=== PATIENT | female | born 1990 | race Caucasian/White ===

== ENCOUNTER 2017-03-25 22:54 | Emergency (ER) | payer OTHER ==
[2017-03-25] MEDS ORDERED: AMOXICILLIN 250 MG/5 ML 80 ML BOTTLE PO ONE (23:14)
[2017-03-25] MEDS ORDERED: ONDANSETRON ODT 4 MG TAB PO STA (23:14)
[2017-03-25] MEDS ORDERED: MORPHINE ORAL SOLN 10 MG/5 ML CUP PO STA (23:14)
[2017-03-25] MEDS ORDERED: LIDOCAINE VISCOUS 2% 15 ML CUP MUCOUS MEM ONE (23:15)
--- NOTE | 2017-03-25 23:16 | ED ---
General Adult HPI - General Chief complaint: Dental/Oral Stated complaint: dental pain Time Seen by Provider: 03/25/17 23:07 Source: patient, RN notes reviewed, old records reviewed Mode of arrival: ambulatory Limitations: no limitations - History of Present Illness Initial comments: This is a 19-year-old female to the ER for evaluation of mouth pain. Patient has history of severe dental caries. Multiple episodes of infection and dental abscess. She states she's had 2 days of worsening pain, states she is getting mildly increased malodorous breath. Patient states pain when she presses on her back left teeth. Denies any fevers. Able swallow without difficulty. - Related Data Previous Rx's Medication Instructions Recorded Acetaminophen-Codeine 300-30mg 1 tab PO Q6H PRN #30 tablet 03/25/17 [Tylenol #3] Penicillin V Potassium [Pen Vee K] 500 mg PO QID #40 tab 03/25/17 Allergies Allergy/AdvReac Type Severity Reaction Status Date / Time Sulfa (Sulfonamide Allergy Anaphylaxis Verified 03/26/17 20:56 Antibiotics) sulfamethoxazole Allergy Anaphylaxis Verified 03/26/17 20:56 [From Bactrim] trimethoprim [From Bactrim] Allergy Anaphylaxis Verified 03/26/17 20:56 Review of Systems ROS Statement: Those systems with pertinent positive or pertinent negative responses have been documented in the HPI. ROS Other: All systems not noted in ROS Statement are negative. Past Medical History Past Medical History: No Reported History History of Any Multi-Drug Resistant Organisms: None Reported Past Surgical History: No Surgical Hx Reported Past Psychological History: No Psychological Hx Reported Smoking Status: Current every day smoker Past Alcohol Use History: Rare Past Drug Use History: None Reported General Exam Limitations: no limitations General appearance: alert, in no apparent distress Head exam: Present: atraumatic, normocephalic, normal inspection Eye exam: Present: normal appearance, PERRL, EOMI. Absent: scleral icterus, conjunctival injection, periorbital swelling ENT exam: Present: normal exam, mucous membranes moist Neck exam: Present: normal inspection. Absent: tenderness, meningismus, lymphadenopathy Respiratory exam: Present: normal lung sounds bilaterally. Absent: respiratory distress, wheezes, rales, rhonchi, stridor Cardiovascular Exam: Present: regular rate, normal rhythm, normal heart sounds. Absent: systolic murmur, diastolic murmur, rubs, gallop, clicks GI/Abdominal exam: Present: soft, normal bowel sounds. Absent: distended, tenderness, guarding, rebound, rigid Extremities exam: Present: normal inspection, full ROM, normal capillary refill. Absent: tenderness, pedal edema, joint swelling, calf tenderness Back exam: Present: normal inspection Neurological exam: Present: alert, oriented X3, CN II-XII intact Psychiatric exam: Present: normal affect, normal mood Skin exam: Present: warm, dry, intact, normal color. Absent: rash Course Vital Signs 03/25/17 03/26/17 23:00 00:08 Temperature 98.1 F 97.5 F L Pulse Rate 82 80 Respiratory 20 18 Rate Blood Pressure 149/96 123/87 O2 Sat by Pulse 97 96 Oximetry Medical Decision Making - Medical Decision Making 27 female in the ER for evaluation of dental abscess, severe dental pain and dental caries. Patient was placed on pain control and antibiotics. Patient can be discharged home Disposition Clinical Impression: Dental abscess, Toothache, Dental caries Disposition: HOME SELF-CARE Condition: Good Instructions: Dental Abscess (ED), Dental Caries (ED), Toothache (ED) Prescriptions: Acetaminophen-Codeine 300-30mg [Tylenol #3] 1 tab PO Q6H PRN #30 tablet PRN Reason: Pain Penicillin V Potassium [Pen Vee K] 500 mg PO QID #40 tab Referrals: Russell Brennan MD [Primary Care Provider] - 1-2 days
[2017-03-26 00:09] VITALS: BP 123/87; PULSE 80; RESP 18; TEMP 97.5
--- NOTE | 2017-03-28 04:43 | CDI ---
Dear Jose Manuel Randall DO: Please do addendum History of Present Illness and Physical Examination. Thank you, Binu Clark, Customer Records Division Supervisor. If you have any questions, please contact [employer] at [phone]. [facility]
== END 2017-03-26 00:10 | disposition home or self-care (01) ==
LOC: EC 22:54
DX: K04.7 Periapical abscess without sinus (principal); K02.9 Dental caries, unspecified; F17.200 Nicotine dependence, unspecified, uncomplicated; Z88.1 Allergy status to other antibiotic agents; Z88.2 Allergy status to sulfonamides
CPT/HCPCS: 99283; 99285

== ENCOUNTER 2017-03-26 20:12 | Emergency (ER) | payer OTHER ==
[2017-03-26 20:58] VITALS: BP 129/90; PULSE 116; RESP 18; TEMP 97.6
[2017-03-26] MEDS ORDERED: MORPHINE SULFATE 10 MG/ML SYRINGE IM STA (21:13)
[2017-03-26] MEDS ORDERED: ONDANSETRON 4 MG ODT STARTER PACK 2 TAB BTL PO STA (21:14)
--- NOTE | 2017-03-26 21:15 | ED ---
ENT HPI - General Chief complaint: Dental/Oral Stated complaint: Tooth Ache Time Seen by Provider: 03/26/17 20:51 Source: patient Mode of arrival: ambulatory Limitations: no limitations - History of Present Illness Initial comments: 27-year-old female patient presented to emergency department today for evaluation of dental pain and facial swelling. Patient states that she was seen here yesterday for similar symptoms and given a prescription for antibiotics and pain medication however she was unable to get these filled today. Patient states that she did have increasing pain this evening area she states that her face feels a little bit more swollen. She states she did call the dentist this morning however they told her that she would have to complete her antibiotics prior to having an appointment with them. She states that she has felt hot and chilled however has no documented temperature. She states that she has felt somewhat nauseated today. Patient states that the pain as a burning pain that radiates into her neck and into her face. She states that she is suppose to have all of her teeth removed. Patient denies any recent shortness breath, chest pain, abdominal pain, nausea, vomiting, diarrhea, constipation, back pain, numbness, tingling, headache, visual changes, hematuria , dysuria, urinary frequency, urinary urgency, or any other complaints. - Related Data Previous Rx's Medication Instructions Recorded Acetaminophen-Codeine 300-30mg 1 tab PO Q6H PRN #30 tablet 03/25/17 [Tylenol #3] Penicillin V Potassium [Pen Vee K] 500 mg PO QID #40 tab 03/25/17 Allergies Allergy/AdvReac Type Severity Reaction Status Date / Time Sulfa (Sulfonamide Allergy Anaphylaxis Verified 03/26/17 20:56 Antibiotics) sulfamethoxazole Allergy Anaphylaxis Verified 03/26/17 20:56 [From Bactrim] trimethoprim [From Bactrim] Allergy Anaphylaxis Verified 03/26/17 20:56 Review of Systems ROS Statement: Those systems with pertinent positive or pertinent negative responses have been documented in the HPI. ROS Other: All systems not noted in ROS Statement are negative. Past Medical History Past Medical History: No Reported History History of Any Multi-Drug Resistant Organisms: None Reported Past Surgical History: No Surgical Hx Reported Past Psychological History: Depression Smoking Status: Current every day smoker Past Alcohol Use History: Occasional Past Drug Use History: None Reported General Exam Limitations: no limitations General appearance: alert, in distress (Mild), other (This is a well-developed, well-nourished adult female patient in mild distress related to pain. Vital signs upon presentation a temperature 97.6F, pulse 116, respirations 18, blood pressure 129/90, pulse ox 96% on room air.) Eye exam: Present: normal appearance, PERRL, EOMI. Absent: scleral icterus, conjunctival injection, periorbital swelling ENT exam: Present: normal exam, mucous membranes moist, other (Examination of mouth revealed extensive dental disease. All teeth are black and and flush with the gums. Surrounding gingiva is erythematous and swollen. Patient does have some minor swelling to the left face.) Neck exam: Present: normal inspection. Absent: tenderness, meningismus, lymphadenopathy Respiratory exam: Present: normal lung sounds bilaterally. Absent: respiratory distress, wheezes, rales, rhonchi, stridor Cardiovascular Exam: Present: regular rate, normal rhythm, normal heart sounds. Absent: systolic murmur, diastolic murmur, rubs, gallop, clicks Neurological exam: Present: alert, oriented X3, CN II-XII intact Psychiatric exam: Present: normal affect, normal mood Skin exam: Present: warm, dry, intact, normal color. Absent: rash Course Vital Signs 03/26/17 20:56 Temperature 97.6 F Pulse Rate 116 H Respiratory 18 Rate Blood Pressure 129/90 O2 Sat by Pulse 96 Oximetry Medical Decision Making - Medical Decision Making 27-year-old female patient presents to emergency department today for evaluation of dental pain and facial swelling. Physical exam did reveal extensive periodontal disease with gingival erythema and swelling. No area of drainable abscess noted. As patient did have increase in symptoms from yesterday to today I will give her an injection of penicillin here in the department. She was given another dose of pain medication IM as well. Patient did get prescriptions yesterday for antibiotics and pain medication however states she had no transportation to get them filled today. I did discuss with patient the importance of filling these prescriptions and completing the antibiotics in full. I encouraged her to call tomorrow to make a dental appointment for when the antibiotics are completed. She is instructed to follow -up with her primary care physician for recheck in 1-2 days. She is instructed to return here immediately for any new, worsening, or concerning symptoms. She verbalizes understanding and agrees with this plan. Disposition Clinical Impression: Abscess, dental, Pain, dental Disposition: HOME SELF-CARE Condition: Good Instructions: Dental Abscess (ED), Dental Caries (ED), Toothache (ED) Additional Instructions: Take medications as directed. Follow-up with the dentist as soon as possible. Return immediately for any new, worsening, or concerning symptoms. Referrals: Russell Brennan MD [Primary Care Provider] - 1-2 days Time of Disposition: 21:15
[2017-03-26] MEDS ORDERED: PENICILLIN G BENZATHINE 1,200,000 UNIT/2 ML SYRINGE IM STA (21:17)
== END 2017-03-26 21:45 | disposition home or self-care (01) ==
LOC: EC 20:12
DX: K04.7 Periapical abscess without sinus (principal); F17.200 Nicotine dependence, unspecified, uncomplicated; Z88.2 Allergy status to sulfonamides
CPT/HCPCS: 99282 ×2; 96372 ×3; J0561; J2270; S0119

== ENCOUNTER → 2017-05-02 | Outpatient (CLI) | payer OTHER ==
--- NOTE | 2017-05-02 19:46 | MR ---
EXAMINATION TYPE: MR brain wo con DATE OF EXAM: 05/02/2017 COMPARISON: CT brain August 24, 2009. HISTORY: Muscle spasms, R/O MS TECHNIQUE: Multiplanar, multisequence images of the brain and brainstem is performed without IV contrast. Demye linating disease protocol with additional Sagittal Flair sequence performed. FINDINGS: T2 Lesions Present : No Approximate Number of Lesions: N/A Locations Identified : N/A Size of Reference Lesion(s): N/A Enhancing Lesion(s) Present: N/A Change from Prior: N/A Diffusion weighted images demonstrate no evidence of a recent infarct or other diffusion abnormality. There is no worrisome extra-axial fluid collection. The ventricular system and cisternal spaces ar e normal in size and appearance. The brain volume is age appropriate. Midline structures demonstrate normal morphology. The craniocervical junction appears within normal limits. Post contrast images demonstrate no abnormal enhancement. The dural venous sinuses appear pa tent. There is a small mucous retention cyst or polyp in inferior left maxillary sinus. There is mode rate mucosal thickening left ethmoid sinuses with left-sided nasal deviation. The globes are intact b ilaterally. IMPRESSION: No suspicious white matter changes identified to suggest demyelinating disease.
== END | disposition home or self-care (01) ==
LOC: RADMRIMAIN 18:29
PROVIDERS: ATTEND Family Medicine
DX: M62.838 Other muscle spasm (principal)
CPT/HCPCS: 70551

== ENCOUNTER 2017-06-15 22:01 | Emergency (ER) | payer OTHER ==
[2017-06-15] MEDS ORDERED: SODIUM CHLORIDE 0.9% 2,000 ML IV STA (23:52)
[2017-06-15] MEDS ORDERED: ONDANSETRON 4 MG/2 ML VIAL IVP STA (23:52)
[2017-06-16 00:32] LABS: Appearance,Urine Clear (Clear); Bacteria,Urine Rare /hpf; Bilirubin,Urine Negative (Negative); Blood,Urine Moderate (Negative); Color,Urine Colorless; Glucose,Urine (UA) Negative (Negative); Ketones,Urine Negative (Negative); Leukocyte Esterase,Urine Negative (Negative); Nitrite,Urine Negative (Negative); Protein,Urine Negative (Negative); RBC,Urine 1 /hpf (0-5); Specific Gravity,Urine 1.001 (1.001-1.035); Urobilinogen,Urine <2.0 mg/dL (<2.0)
[2017-06-16 00:32] LABS: Basophils # (A) 0.1 k/uL (0-0.2); Basophils % (A) 0 %; Eosinophils # (A) 0.2 k/uL (0-0.7); Eosinophils % (A) 2 %; HCT 44.6 % (34.0-46.0); HGB 14.7 gm/dL (11.4-16.0); Lymphocytes # (A) 3.1 k/uL (1.0-4.8); Lymphocytes % (A) 27 %; MCH 30.3 pg (25.0-35.0); MCHC 32.9 g/dL (31.0-37.0); Mean Platelet Volume 7.1; Monocytes # (A) 0.4 k/uL (0-1.0); Monocytes % (A) 3 %; Neutrophils # (A) 7.3 k/uL (1.3-7.7); Neutrophils % (A) 65 %; Platelet Count 288 k/uL (150-450); RBC 4.85 m/uL (3.80-5.40); RDW 15.4 % (11.5-15.5); WBC 11.2 k/uL (3.8-10.6)
[2017-06-16] MEDS ORDERED: SODIUM CHLORIDE 0.9% 1,000 ML IV SCH (00:45)
[2017-06-16 00:48] LABS: ALT 53 U/L (9-52); AST 30 U/L (14-36); Albumin 4.4 g/dL (3.5-5.0); Alkaline Phosphatase 56 U/L (38-126); Amylase 40 U/L (30-110); Anion Gap 13 mmol/L; Blood Urea Nitrogen 7 mg/dL (7-17); Calcium 9.7 mg/dL (8.4-10.2); Carbon Dioxide 26 mmol/L (22-30); Chloride 88 mmol/L (98-107); Glucose 127 mg/dL (74-99); Lipase 66 U/L (23-300); Potassium 3.5 mmol/L (3.5-5.1); Sodium 127 mmol/L (137-145); Total Bilirubin 0.4 mg/dL (0.2-1.3); Total Protein 7.3 g/dL (6.3-8.2)
--- NOTE | 2017-06-16 01:05 | ED ---
Nausea/Vomiting/Diarrhea HPI - General Chief complaint: Nausea/Vomiting/Diarrhea Stated complaint: Vomiting Time Seen by Provider: 06/15/17 23:33 Source: patient, RN notes reviewed, old records reviewed Mode of arrival: ambulatory Limitations: no limitations - History of Present Illness Initial comments: 27 year old female with history of nausea, vomiting and diarrhea for 3 days. She denies any fever or chills. FAmily has sick contacts with similiar symptoms but not for this long. She has no abdminal pain. Denies chance of . No blood in stool or emesis. MD complaint: nausea, vomiting, diarrhea Onset/Timin -: days(s) Description of Diarrhea: mucous Associated Abdominal Pain: No (Patient denies any abdominal pain) Radiation: none Severity: moderate Associated Symptoms: loss of appetite, malaise, nausea/vomiting - Related Data Home Medications Medication Instructions Recorded Confirmed Ergocalciferol [Vitamin D2] 50,000 unit PO TH 06/15/17 06/15/17 Gabapentin [Neurontin] 100 mg PO TID 06/15/17 06/15/17 Norgestrel-Ethinyl Estradiol 1 tab PO DAILY 06/15/17 06/15/17 [[id number] Tablet] Previous Rx's Medication Instructions Recorded Ondansetron Odt [Zofran Odt] 4 mg PO Q8HR PRN #12 tab 06/16/17 Allergies Allergy/AdvReac Type Severity Reaction Status Date / Time diphenhydramine Allergy Swelling Verified 06/15/17 23:50 [From Benadryl] Sulfa (Sulfonamide Allergy Anaphylaxis Verified 06/15/17 23:50 Antibiotics) sulfamethoxazole Allergy Anaphylaxis Verified 06/15/17 23:50 [From Bactrim] trimethoprim [From Bactrim] Allergy Anaphylaxis Verified 06/15/17 23:50 Review of Systems ROS Statement: Those systems with pertinent positive or pertinent negative responses have been documented in the HPI. ROS Other: All systems not noted in ROS Statement are negative. Past Medical History Past Medical History: No Reported History Additional Past Medical History / Comment(s): MS History of Any Multi-Drug Resistant Organisms: None Reported Past Surgical History: No Surgical Hx Reported Past Psychological History: Depression Smoking Status: Current every day smoker Past Alcohol Use History: Occasional Past Drug Use History: None Reported General Exam - General Exam Comments Initial Comments: This is a 27 year old male, no distress. Limitations: no limitations General appearance: alert, in no apparent distress Head exam: Present: atraumatic, normocephalic, normal inspection Eye exam: Present: normal appearance, PERRL, EOMI. Absent: scleral icterus, conjunctival injection, periorbital swelling ENT exam: Present: normal exam, mucous membranes moist Neck exam: Present: normal inspection. Absent: tenderness, meningismus, lymphadenopathy Respiratory exam: Present: normal lung sounds bilaterally. Absent: respiratory distress, wheezes, rales, rhonchi, stridor Cardiovascular Exam: Present: regular rate, normal rhythm, normal heart sounds. Absent: systolic murmur, diastolic murmur, rubs, gallop, clicks GI/Abdominal exam: Present: soft, normal bowel sounds. Absent: distended, tenderness, guarding, rebound, rigid Back exam: Present: normal inspection Neurological exam: Present: alert, oriented X3, CN II-XII intact Psychiatric exam: Present: normal affect, normal mood Skin exam: Present: warm, dry, intact, normal color. Absent: rash Course Vital Signs 06/15/17 06/15/17 06/16/17 22:17 23:37 00:13 Temperature 98.4 F 97.9 F Pulse Rate 79 61 Respiratory 18 18 16 Rate Blood Pressure 144/90 147/94 O2 Sat by Pulse 98 97 Oximetry 06/16/17 01:18 Temperature 97.0 F L Pulse Rate 69 Respiratory 17 Rate Blood Pressure 156/85 O2 Sat by Pulse 98 Oximetry Medical Decision Making - Medical Decision Making This is a 27 year old with NVD for 3 days. No travel history, no abdominal pain. No recent Abx. She has no toerh symptoms at this time besides fatigue. Patient lab work reviewed, hyponatremia noted. Likely due to dehydration. WBC is normal. Patient reports she feels better after nausea medication nad fluids. Patient will be discharged with zofran and diagnosed with viral gastroenteritis. Return parameters discussed. - Lab Data Result diagrams: 06/16/17 00:05 06/16/17 00:05 Lab Results 06/15/17 06/16/17 06/16/17 Range/Units 23:30 00:05 00:05 WBC 11.2 H (3.8-10.6) k/uL RBC 4.85 (3.80-5.40) m/uL Hgb 14.7 (11.4-16.0) gm/dL Hct 44.6 (34.0-46.0) % MCV 92.0 (80.0-100.0) fL MCH 30.3 (25.0-35.0) pg MCHC 32.9 (31.0-37.0) g/dL RDW 15.4 (11.5-15.5) % Plt Count 288 (150-450) k/uL Neutrophils % 65 % Lymphocytes % 27 % Monocytes % 3 % Eosinophils % 2 % Basophils % 0 % Neutrophils # 7.3 (1.3-7.7) k/uL Lymphocytes # 3.1 (1.0-4.8) k/uL Monocytes # 0.4 (0-1.0) k/uL Eosinophils # 0.2 (0-0.7) k/uL Basophils # 0.1 (0-0.2) k/uL Sodium 127 L (137-145) mmol/L Potassium 3.5 (3.5-5.1) mmol/L Chloride 88 L (98-107) mmol/L Carbon Dioxide 26 (22-30) mmol/L Anion Gap 13 mmol/L BUN 7 (7-17) mg/dL Creatinine 0.60 (0.52-1.04) mg/dL Est GFR (MDRD) Af Amer >60 (>60 ml/min/1.73 sqM) Est GFR (MDRD) Non-Af >60 (>60 ml/min/1.73 sqM) Glucose 127 H (74-99) mg/dL Calcium 9.7 (8.4-10.2) mg/dL Total Bilirubin 0.4 (0.2-1.3) mg/dL AST 30 (14-36) U/L ALT 53 H (9-52) U/L Alkaline Phosphatase 56 (38-126) U/L Total Protein 7.3 (6.3-8.2) g/dL Albumin 4.4 (3.5-5.0) g/dL Amylase 40 (30-110) U/L Lipase 66 (23-300) U/L Urine Color Colorless Urine Appearance Clear (Clear) Urine pH 5.0 (5.0-8.0) Ur Specific [place] 1.001 (1.001-1.035) Urine Protein Negative (Negative) Urine Glucose (UA) Negative (Negative) Urine Ketones Negative (Negative) Urine Blood Moderate H (Negative) Urine Nitrite Negative (Negative) Urine Bilirubin Negative (Negative) Urine Urobilinogen <2.0 (<2.0) mg/dL Ur Leukocyte Esterase Negative (Negative) Urine RBC 1 (0-5) /hpf Urine Bacteria Rare H (None) /hpf Disposition Clinical Impression: Gastroenteritis Disposition: HOME SELF-CARE Condition: Good Instructions: Dehydration (ED), Gastroenteritis (ED) Additional Instructions: Patient advised to increase fluid intake. Use nausea medication. Follow up with PCP if symptoms continue to persist. Prescriptions: Ondansetron Odt [Zofran Odt] 4 mg PO Q8HR PRN #12 tab PRN Reason: Nausea Referrals: Russell Brennan MD [Primary Care Provider] - 1-2 days Time of Disposition: 01:02
[2017-06-16 01:21] VITALS: BP 156/85; PULSE 69; RESP 17; TEMP 97
== END 2017-06-16 01:25 | disposition home or self-care (01) ==
LOC: EC 22:01
DX: K52.9 Noninfective gastroenteritis and colitis, unspecified (principal); F17.200 Nicotine dependence, unspecified, uncomplicated; Z79.3 Long term (current) use of hormonal contraceptives; Z79.899 Other long term (current) drug therapy; Z88.8 Allergy status to other drugs, medicaments and biological substances; Z88.2 Allergy status to sulfonamides
CPT/HCPCS: 36415; 80053; 82150; 83690; 85025; 81001; 99284; 96374; 96361; J2405

== ENCOUNTER 2017-10-10 06:06 | Emergency (ER) | payer OTHER ==
[2017-10-10] MEDS ORDERED: HYDROcodone/APAP 10-325MG 1 EACH TAB PO ONE (07:33)
[2017-10-10] MEDS ORDERED: KETOROLAC 30 MG/ML 1 ML VIAL IM STA (07:33)
--- NOTE | 2017-10-10 07:43 | ED ---
Extremity Problem HPI - General Chief complaint: Extremity Problem,Nontraumatic Stated complaint: KNEE PAIN Time Seen by Provider: 10/10/17 07:24 Source: patient Mode of arrival: ambulatory Limitations: no limitations - History of Present Illness Initial comments: Patient complains of pain in the right knee. Sometimes she has seizures at night. She thinks she might have injured it. She denies any numbness or tingling in the feet. She has no focal weakness. She denies any head injury, neck injury. She took no medication for the pain. She has no history of drug abuse. She denies belly or back pain. She has no dysuria vaginal bleeding or discharge. She has no focal weakness. She has no numbness or tingling in the toes. She has no claudication. - Related Data Home Medications Medication Instructions Recorded Confirmed Ergocalciferol [Vitamin D2] 50,000 unit PO TH 06/15/17 06/15/17 Gabapentin [Neurontin] 100 mg PO TID 06/15/17 06/15/17 Norgestrel-Ethinyl Estradiol 1 tab PO DAILY 06/15/17 06/15/17 [[id number] Tablet] Previous Rx's Medication Instructions Recorded Ondansetron Odt [Zofran Odt] 4 mg PO Q8HR PRN #12 tab 06/16/17 Allergies Allergy/AdvReac Type Severity Reaction Status Date / Time diphenhydramine Allergy Swelling Verified 06/15/17 23:50 [From Benadryl] Sulfa (Sulfonamide Allergy Anaphylaxis Verified 06/15/17 23:50 Antibiotics) sulfamethoxazole Allergy Anaphylaxis Verified 06/15/17 23:50 [From Bactrim] trimethoprim [From Bactrim] Allergy Anaphylaxis Verified 06/15/17 23:50 Review of Systems ROS Statement: Those systems with pertinent positive or pertinent negative responses have been documented in the HPI. ROS Other: All systems not noted in ROS Statement are negative. Past Medical History Past Medical History: Seizure Disorder Additional Past Medical History / Comment(s): recently diagnosed with MS, pt reports "night time seizures" no medication History of Any Multi-Drug Resistant Organisms: None Reported Past Surgical History: No Surgical Hx Reported Past Psychological History: Depression Smoking Status: Current every day smoker Past Alcohol Use History: Occasional Past Drug Use History: None Reported General Exam Limitations: no limitations Head exam: Present: atraumatic, normocephalic, normal inspection Eye exam: Present: normal appearance, PERRL, EOMI. Absent: scleral icterus, conjunctival injection, periorbital swelling ENT exam: Present: normal exam Neck exam: Present: normal inspection Respiratory exam: Absent: respiratory distress Extremities exam: Present: normal inspection, full ROM, normal capillary refill. Absent: tenderness, pedal edema, joint swelling, calf tenderness Back exam: Present: normal inspection Neurological exam: Present: alert, oriented X3, CN II-XII intact Psychiatric exam: Present: normal affect, normal mood Skin exam: Present: warm, dry, intact, normal color. Absent: rash Course Vital Signs 10/10/17 06:09 Temperature 97.6 F Pulse Rate 105 H Respiratory 18 Rate Blood Pressure 135/93 O2 Sat by Pulse 94 L Oximetry Medical Decision Making - Medical Decision Making Patient complains of a knee injury. X-rays are negative. She has neurovascularly intact. She has no evidence of DVT or infectious process. There is no evidence of any acute emergency condition. She is stable for discharge and outpatient follow-up. Disposition Clinical Impression: Knee pain Disposition: HOME SELF-CARE Condition: Good Instructions: Knee Pain (ED) Is patient prescribed a controlled substance at d/c from ED?: No Referrals: Russell Brennan MD [Primary Care Provider] - 1-2 days Jose Edwards MD [STAFF PHYSICIAN] - 1-2 days Time of Disposition: 07:58
--- NOTE | 2017-10-10 07:49 | XR ---
RIGHT KNEE, 3 VIEWS INDICATION: Right knee pain COMPARISON: None. FINDINGS: AP, oblique, and lateral views of the right knee are obtained. There is no evidence of acute fracture or malalignment. The joint spaces are maintained. There is no significant joint effusion. Soft tissues are radiographically unremarkable. IMPRESSION: No acute fracture or subluxation identified.
[2017-10-10 08:15] VITALS: BP 128/72; PULSE 94; RESP 16; TEMP 98.2
== END 2017-10-10 08:15 | disposition home or self-care (01) ==
LOC: EC 06:06
DX: M25.561 Pain in right knee (principal); G40.909 Epilepsy, unspecified, not intractable, without status epilepticus; F32.9 Major depressive disorder, single episode, unspecified; F17.200 Nicotine dependence, unspecified, uncomplicated; Z88.1 Allergy status to other antibiotic agents; Z88.2 Allergy status to sulfonamides; Z88.8 Allergy status to other drugs, medicaments and biological substances; Z79.3 Long term (current) use of hormonal contraceptives; Z79.899 Other long term (current) drug therapy
CPT/HCPCS: 99283; 73562; J1885

== ENCOUNTER 2018-04-12 23:36 | Emergency (ER) | payer OTHER ==
[2018-04-13] MEDS ORDERED: MORPHINE SULFATE 4 MG/ML SYRINGE IM STA (01:21)
[2018-04-13] MEDS ORDERED: PENICILLIN G BENZATHINE 1,200,000 UNIT/2 ML SYRINGE IM STA (01:21)
[2018-04-13] MEDS ORDERED: KETOROLAC 30 MG/ML 1 ML VIAL IM STA (01:21)
[2018-04-13] MEDS ORDERED: ONDANSETRON ODT 4 MG TAB PO STA (01:22)
[2018-04-13] MEDS ORDERED: ACET/COD 300 MG/30 MG STARTER PACK 6 TAB BTL PO STA (01:23)
--- NOTE | 2018-04-13 01:23 | ED ---
ENT HPI - General Chief complaint: Dental/Oral Stated complaint: Dental Pain Time Seen by Provider: 04/13/18 00:40 Source: patient Mode of arrival: ambulatory Limitations: no limitations - History of Present Illness Initial comments: 28-year-old female patient presents to the emergency department today with complaints of left-sided facial pain and swelling. Patient states that she has multiple broken and "infected" teeth. Patient states that she does have a dentist appointment next week for multiple tooth extraction however started having increased pain and swelling 2 days ago. Patient states that she has been nauseated throughout the day and has vomited. Patient states she is mostly is gagging because the area around the teeth is draining purulent fluid. Patient denies any fevers or chills with this. Denies any difficulty swallowing or trismus. Patient denies any recent rash, shortness breath, chest pain, back pain, numbness, tingling, dizziness, weakness, hematuria, dysuria, urinary urgency, urinary frequency, headache, visual changes, or any other complaints. - Related Data Home Medications Medication Instructions Recorded Confirmed Norgestrel-Ethinyl Estradiol 1 tab PO DAILY 06/15/17 10/10/17 [[id number] Tablet] Previous Rx's Medication Instructions Recorded Ibuprofen [Motrin] 600 mg PO Q8HR PRN #30 tab 04/13/18 Penicillin V Potassium [Pen Vee K] 500 mg PO Q6H #40 tablet 04/13/18 Allergies Allergy/AdvReac Type Severity Reaction Status Date / Time diphenhydramine Allergy Swelling Verified 04/12/18 23:47 [From Benadryl] Sulfa (Sulfonamide Allergy Anaphylaxis Verified 04/12/18 23:47 Antibiotics) sulfamethoxazole Allergy Anaphylaxis Verified 04/12/18 23:47 [From Bactrim] trimethoprim [From Bactrim] Allergy Anaphylaxis Verified 04/12/18 23:47 Review of Systems ROS Statement: Those systems with pertinent positive or pertinent negative responses have been documented in the HPI. ROS Other: All systems not noted in ROS Statement are negative. Past Medical History Past Medical History: Seizure Disorder Additional Past Medical History / Comment(s): recently diagnosed with MS, pt reports "night time seizures" no medication History of Any Multi-Drug Resistant Organisms: None Reported Past Surgical History: No Surgical Hx Reported Past Psychological History: Depression Smoking Status: Current every day smoker Past Alcohol Use History: Occasional Past Drug Use History: None Reported General Exam Limitations: no limitations General appearance: alert, in no apparent distress, other (This is a well- developed, well-nourished adult female patient in no acute distress. Vital signs upon presentation are temperature 98.5F, pulse 89, respirations 18, blood pressure 134/92, pulse ox 98% on room air.) ENT exam: Present: mucous membranes moist, TM's normal bilaterally, other ( Patient has very poor dentition, all teeth are broken down to the gumline. Left lower dentition does reveal hypertrophied erythematous gingiva with evidence of abscess. There is purulent drainage present. Patient has mild left -sided facial swelling.). Absent: normal exam, normal oropharynx Neck exam: Present: normal inspection. Absent: tenderness, meningismus, lymphadenopathy Respiratory exam: Present: normal lung sounds bilaterally. Absent: respiratory distress, wheezes, rales, rhonchi, stridor Cardiovascular Exam: Present: regular rate, normal rhythm, normal heart sounds. Absent: systolic murmur, diastolic murmur, rubs, gallop, clicks Neurological exam: Present: alert, oriented X3, CN II-XII intact Psychiatric exam: Present: normal affect, normal mood Skin exam: Present: warm, dry, intact, normal color. Absent: rash Course Vital Signs 04/12/18 04/13/18 23:45 01:36 Temperature 98 F 98.2 F Pulse Rate 89 77 Respiratory 18 16 Rate Blood Pressure 134/92 139/94 O2 Sat by Pulse 98 97 Oximetry Medical Decision Making - Medical Decision Making 28-year-old female patient presented to emergency department today for complaints of dental pain and facial swelling. Physical examination did reveal very poor dentition with multiple fractured teeth and dental caries. There is evidence of abscess to the left lower gingiva. This is open and draining purulent fluid. Patient is afebrile stable vital signs. She was given medication here for pain management. She'll be started on penicillin and instructed to keep dentist appointment that she has for next week. Return parameters were discussed in detail. She verbalizes understanding and agrees with this plan. Disposition Clinical Impression: Dental abscess Disposition: HOME SELF-CARE Condition: Good Instructions: Dental Abscess (ED) Additional Instructions: Swish and spit warm salt water. Complete antibiotic prescription in full. Follow-up with dentistry as soon as possible. Take medications as directed. Return immediately for any new, worsening, or concerning symptoms. Prescriptions: Ibuprofen [Motrin] 600 mg PO Q8HR PRN #30 tab PRN Reason: Pain Penicillin V Potassium [Pen Vee K] 500 mg PO Q6H #40 tablet Is patient prescribed a controlled substance at d/c from ED?: No Referrals: None,Stated [Primary Care Provider] - 1-2 days Time of Disposition: 01:23
[2018-04-13 01:39] VITALS: BP 139/94; PULSE 77; RESP 16; TEMP 98.2
== END 2018-04-13 01:40 | disposition home or self-care (01) ==
LOC: EC 23:36
DX: K04.7 Periapical abscess without sinus (principal); K02.9 Dental caries, unspecified; S02.5XXA Fracture of tooth (traumatic), initial encounter for closed fracture; F17.200 Nicotine dependence, unspecified, uncomplicated; Z88.2 Allergy status to sulfonamides; Z88.8 Allergy status to other drugs, medicaments and biological substances; Z79.3 Long term (current) use of hormonal contraceptives; X58.XXXA Exposure to other specified factors, initial encounter
CPT/HCPCS: 99283; 96372 ×3; J0561; J2270; J1885

== ENCOUNTER 2019-04-29 20:41 | Emergency (ER) | payer OTHER ==
[2019-04-29 20:45] VITALS: BP 137/94; PULSE 107; RESP 18; TEMP 97.8
[2019-04-29] MEDS ORDERED: PENICILLIN VK 500MG STARTER 4 TAB BTL PO STA (20:45)
[2019-04-29] MEDS ORDERED: ACET/COD 300 MG/30 MG STARTER PACK 6 TAB BTL PO STA (20:45)
--- NOTE | 2019-04-29 20:47 | ED ---
ENT HPI - General Chief complaint: Dental/Oral Stated complaint: Tooth infection Time Seen by Provider: 04/29/19 20:45 Source: patient Mode of arrival: ambulatory Limitations: no limitations - History of Present Illness Initial comments: 29-year-old female with history of overall poor dentition with multiple missing teeth presents emergency department for chief complaint of left upper dental pain x 2 dats. Patient states she has left upper dental pain at the area where she is to have a tooth. Patient states that it hurts when she eats. Patient denies fever or flulike symptoms denies difficulty breathing swelling of the face, swelling below the tongue or of the neck. Patient denies any other complaints. Remaining review of system negative. Upon arrival patient appears well no signs of acute distress afebrile. - Related Data Home Medications Medication Instructions Recorded Confirmed Norgestrel-Ethinyl Estradiol 1 tab PO DAILY 06/15/17 10/10/17 [[id number] Tablet] Previous Rx's Medication Instructions Recorded Ibuprofen [Motrin] 600 mg PO Q8HR PRN #30 tab 04/13/18 Penicillin V Potassium [Pen Vee K] 500 mg PO Q6H #40 tablet 04/13/18 Penicillin V Potassium [Pen Vee K] 500 mg PO QID 7 Days #28 tablet 04/29/19 Allergies Allergy/AdvReac Type Severity Reaction Status Date / Time diphenhydramine Allergy Swelling Verified 04/29/19 20:45 [From Benadryl] Sulfa (Sulfonamide Allergy Anaphylaxis Verified 04/29/19 20:45 Antibiotics) sulfamethoxazole Allergy Anaphylaxis Verified 04/29/19 20:45 [From Bactrim] trimethoprim [From Bactrim] Allergy Anaphylaxis Verified 04/29/19 20:45 Review of Systems ROS Statement: Those systems with pertinent positive or pertinent negative responses have been documented in the HPI. ROS Other: All systems not noted in ROS Statement are negative. Past Medical History Past Medical History: Seizure Disorder Additional Past Medical History / Comment(s): recently diagnosed with MS, pt reports "night time seizures" no medication History of Any Multi-Drug Resistant Organisms: None Reported Past Surgical History: No Surgical Hx Reported Past Psychological History: Depression Smoking Status: Current every day smoker Past Alcohol Use History: None Reported, Occasional Past Drug Use History: None Reported General Exam - General Exam Comments Initial Comments: General: The patient is awake and alert, in no distress, and does not appear acutely ill. Eye: Pupils are equal, round and reactive to light, extra-ocular movements are intact. No nystagmus. There is normal conjunctiva bilaterally. No signs of icterus. Ears, nose, mouth and throat: There are moist mucous membranes and no oral lesions. No swelling below the tongue of the neck or below the angle of the mandible. No facial swelling. No adjacent fluctuant area of the gingiva. Patient is tender to percussion of the gingiva at tooth Neck: The neck is supple, there is no tenderness or JVD. Musculoskeletal: Normal ROM, no tenderness. Strength 5/5. Sensation intact. Pulses equal bilaterally 2+. Neurological: A&O x 3. CN II-XII intact, There are no obvious motor or sensory deficits. Coordination appears grossly intact. Speech is normal. Skin: Skin is warm and dry and no rashes or lesions are noted. Psychiatric: Cooperative, appropriate mood & affect, normal judgment. Limitations: no limitations Course Vital Signs 04/29/19 20:43 Temperature 97.8 F Pulse Rate 107 H Respiratory 18 Rate Blood Pressure 137/94 O2 Sat by Pulse 97 Oximetry Medical Decision Making - Medical Decision Making Well-appearing 29-year-old female presenting for dental pain. Patient has history of poor dentition. Almost all of patient's teeth are missing on physical examination. There is tenderness to percussion over tooth #16 would be. There is no fluctuant abscess. No facial swelling no signs of Nii's angina. Patient appears well no other abnormal physical examination findings. Return for management were discussed hCG negative. Patient will be given a starter pack of Tylenol No. 3 and penicillin K with instruction to follow-up with dentist. She is agreeable to this care plan, return parameters discussed patient discharged appearing well - Lab Data Lab Results 04/29/19 Range/Units 21:00 Urine HCG, Qual Not Detected (Not Detectd) Disposition Clinical Impression: Pain, dental Disposition: HOME SELF-CARE Condition: Good Instructions (If sedation given, give patient instructions): Dental Abscess (ED) Additional Instructions: Please use medication as discussed. Please follow-up with dentist in next week. Please return to emergency room if the symptoms increase or worsen or for any other concerns-swelling below the tongue to the angle of the jaw neck difficulty breathing swallowing, fever as discussed. Prescriptions: Penicillin V Potassium [Pen Vee K] 500 mg PO QID 7 Days #28 tablet Is patient prescribed a controlled substance at d/c from ED?: No Referrals: None,Stated [Primary Care Provider] - 1-2 days Time of Disposition: 21:36
== END 2019-04-29 21:37 | disposition home or self-care (01) ==
LOC: EC 20:41
DX: K08.89 Other specified disorders of teeth and supporting structures (principal); K08.409 Partial loss of teeth, unspecified cause, unspecified class; F17.200 Nicotine dependence, unspecified, uncomplicated; Z88.2 Allergy status to sulfonamides; Z88.8 Allergy status to other drugs, medicaments and biological substances; Z79.3 Long term (current) use of hormonal contraceptives
CPT/HCPCS: 81025; 99283